=== PATIENT | male | born 1985 | race Caucasian/White ===

== ENCOUNTER 2017-11-16 17:53 | Emergency (ER) | payer SELFPAY ==
[~2017-11-16] VITALS: Ht 172.7 cm; Wt 64.9 kg
== END 2017-11-16 19:10 | disposition home or self-care (01) ==
LOC: ER 17:53
DX: S69.91XA Unspecified injury of right wrist, hand and finger(s), initial encounter (principal); W22.8XXA Striking against or struck by other objects, initial encounter; F17.210 Nicotine dependence, cigarettes, uncomplicated
CPT/HCPCS: 29125; 73130; 99283

== ENCOUNTER 2017-12-26 09:56 | Emergency (ER) | payer OTHER ==
[~2017-12-26] VITALS: Ht 170.2 cm; Wt 66.7 kg
[2017-12-26] MEDS ORDERED: Percocet 5-3251 EACH PO (11:20)
== END 2017-12-26 11:26 | disposition home or self-care (01) ==
LOC: ER 09:56
DX: S62.337A Displaced fracture of neck of fifth metacarpal bone, left hand, initial encounter for closed fracture (principal); F17.210 Nicotine dependence, cigarettes, uncomplicated; W22.8XXA Striking against or struck by other objects, initial encounter
CPT/HCPCS: 29125; 73130; 96372; 99283; J1885

== ENCOUNTER 2018-01-01 18:32 | Emergency (ER) | payer OTHER ==
[~2018-01-01] VITALS: Ht 170.2 cm; Wt 65.8 kg
[~2018-01-01 18:32] MED LIST: Percocet 5-3251 EACH PO
== END 2018-01-01 20:28 | disposition home or self-care (01) ==
LOC: ER 18:32
DX: Z47.89 Encounter for other orthopedic aftercare (principal); F17.210 Nicotine dependence, cigarettes, uncomplicated
CPT/HCPCS: 29125; 99283

== ENCOUNTER 2018-01-12 13:50 | Day surgery (SDC) | payer OTHER ==
[~2018-01-12] VITALS: Ht 167.6 cm; Wt 56.0 kg
== END 2018-01-12 17:00 | disposition home or self-care (01) ==
LOC: ORSCSDS 13:50
PROVIDERS: Orthopaedic Surgery
PROC: 0PSQ04Z Reposition Left Metacarpal with Internal Fixation Device, Open Approach (ICD-10-PCS; principal; 2018-01-12 14:45)
DX: S62.337D Displaced fracture of neck of fifth metacarpal bone, left hand, subsequent encounter for fracture with routine healing (principal); F17.210 Nicotine dependence, cigarettes, uncomplicated
CPT/HCPCS: J0690; J1885; J2250; J3010; J7120

== ENCOUNTER 2018-07-16 22:31 | Emergency (ER) | payer OTHER ==
[~2018-07-16] VITALS: Ht 170.2 cm; Wt 61.9 kg
[~2018-07-16 22:31] MED LIST changes: +CYCL10 PO; +Naprosyn500 MG PO
== END 2018-07-17 01:06 | disposition home or self-care (01) ==
LOC: ER 22:31
DX: B34.9 Viral infection, unspecified (principal); F17.210 Nicotine dependence, cigarettes, uncomplicated
CPT/HCPCS: 87081; 87430; 99283

== ENCOUNTER 2019-02-22 17:20 | Emergency (ER) | payer BC ==
[~2019-02-22] VITALS: Ht 170.2 cm; Wt 68.5 kg
== END 2019-02-22 19:52 | disposition home or self-care (01) ==
LOC: ER 17:20
DX: S61.532A Puncture wound without foreign body of left wrist, initial encounter (principal); W22.8XXA Striking against or struck by other objects, initial encounter; F17.210 Nicotine dependence, cigarettes, uncomplicated
CPT/HCPCS: 73110; 90471; 90714; 99283-25

== ENCOUNTER 2019-04-13 10:33 | Emergency (ER) | payer MEDICAID ==
[~2019-04-13] VITALS: Ht 170.2 cm; Wt 73.0 kg
[2019-04-13] MEDS ORDERED: MONDOXYNE NL100 MG PO (12:09)
[2019-04-13] MEDS ORDERED: BENZ100A PO (12:09)
== END 2019-04-13 12:41 | disposition home or self-care (01) ==
LOC: ER 10:33
DX: R05 Cough (principal); F17.210 Nicotine dependence, cigarettes, uncomplicated
CPT/HCPCS: 71046; 99283-25

== ENCOUNTER 2019-08-24 20:01 | Emergency (ER) | payer OTHER ==
[~2019-08-24] VITALS: Ht 170.2 cm; Wt 73.0 kg
[~2019-08-24 20:01] MED LIST changes: +BENZ100A PO; +IBUP600 PO; +MONDOXYNE NL100 MG PO; +Norco 10-325 T1 EACH PO; +Prednisone20 MG PO
[2019-08-24] MEDS ORDERED: CETI5 PO (21:55)
== END 2019-08-24 22:03 | disposition home or self-care (01) ==
LOC: ER 20:01
DX: L50.9 Urticaria, unspecified (principal); Z79.52 Long term (current) use of systemic steroids; F17.210 Nicotine dependence, cigarettes, uncomplicated
CPT/HCPCS: 99282; J1100; Q0163

== ENCOUNTER → 2019-11-08 | Outpatient (CLI) | payer OTHER ==
[~2019-11-08] MED LIST changes: +CETI5 PO
== END | disposition home or self-care (01) ==
LOC: LAB SHORT 18:26 → LAB EV 18:26
DX: J06.9 Acute upper respiratory infection, unspecified (principal)
CPT/HCPCS: U0003

== ENCOUNTER 2020-05-11 10:03 | Emergency (ER) | payer OTHER ==
[~2020-05-11] VITALS: Ht 170.2 cm; Wt 59.0 kg
[~2020-05-11 10:03] MED LIST changes: +Norco 5-325 Ta1 EACH PO
[2020-05-11] MEDS ORDERED: IBUP400 PO (11:08)
== END 2020-05-11 11:35 | disposition home or self-care (01) ==
LOC: ER 10:03
DX: S60.211A Contusion of right wrist, initial encounter (principal); J43.9 Emphysema, unspecified; W22.09XA Striking against other stationary object, initial encounter
CPT/HCPCS: 29125; 73110; 73130; 99283-25; L3917

== ENCOUNTER 2020-06-19 11:51 | Emergency (ER) | payer OTHER ==
[~2020-06-19] VITALS: Ht 170.2 cm; Wt 61.7 kg
[~2020-06-19 11:51] MED LIST changes: +IBUP400 PO
== END 2020-06-19 12:49 | disposition home or self-care (01) ==
LOC: ER 11:51
DX: B34.9 Viral infection, unspecified (principal); F17.200 Nicotine dependence, unspecified, uncomplicated
CPT/HCPCS: 99282

== ENCOUNTER 2020-07-29 12:08 | Emergency (ER) | payer OTHER ==
[~2020-07-29] VITALS: Ht 170.2 cm; Wt 61.7 kg
[2020-07-29] MEDS ORDERED: HYDR1TAB94 PO (13:46)
== END 2020-07-29 14:09 | disposition home or self-care (01) ==
LOC: ER 12:08
DX: S20.221A Contusion of right back wall of thorax, initial encounter (principal); F17.210 Nicotine dependence, cigarettes, uncomplicated; W01.198A Fall on same level from slipping, tripping and stumbling with subsequent striking against other object, initial encounter
CPT/HCPCS: 71101; 99283-25; A9270

== ENCOUNTER 2020-10-12 12:44 | Emergency (ER) | payer OTHER ==
[~2020-10-12] VITALS: Ht 167.6 cm; Wt 61.7 kg
[~2020-10-12 12:44] MED LIST changes: +HYDR1TAB94 PO
[2020-10-12 14:13] LABS: BASOPHILS ABSOLUTE AUTO 0.11 K/mm3 (0.00-0.23); BASOPHILS PERCENT AUTO 2 % (0-2); EOSINOPHILS ABSOLUTE AUTO 0.52 K/mm3 (0.00-0.68); EOSINOPHILS PERCENT AUTO 7 % (0-6); Hematocrit 44.3 % (37.0-53.0); Hemoglobin 15.7 g/dL (13.5-17.5); IMMATURE GRAN ABSOLUTE AUTO 0.01 K/mm3 (0.00-0.10); IMMATURE GRAN PERCENT AUTO 0 % (0-1); LYMPHOCYTES ABSOLUTE AUTO 1.86 K/mm3 (0.84-5.20); LYMPHOCYTES PERCENT AUTO 25 % (21-46); MONOCYTES ABSOLUTE AUTO 0.44 K/mm3 (0.16-1.47); MONOCYTES PERCENT AUTO 6 % (4-13); Mean Corpuscular HGB 33.3 pg (26.0-34.0); Mean Corpuscular HGB Conc 35.4 g/dL (31.5-36.5); Mean Corpuscular Volume 94 fL (80-100); Mean Platelet Volume 8.5 fL (9.1-12.4); NEUTROPHILS PERCENT AUTO 61 % (41-73); Platelet Count 278 K/mm3 (150-400); RDW Coefficient Variation 13.3 % (11.7-14.2); RDW Standard Deviation 46.1 fL (35.1-46.3); Red Blood Cell Count 4.72 M/mm3 (4.30-5.90); White Blood Cell Count 7.44 K/mm3 (4.00-11.30)
[2020-10-12 14:20] LABS: Source, Urine Clean Catch
[2020-10-12 14:35] LABS: Bilirubin, Urine Neg (Neg); Blood, Urine 1+ (Neg); Glucose Qualitative, Urine Neg (Neg); Ketones, Urine Neg (Neg); Leukocyte Esterase, Urine Neg (Neg); Nitrite, Urine Neg (Neg); Protein, Urine Neg (Neg); Urobilinogen, Urine NORM (Normal); pH, Urine 6.5 (5.0-8.0)
[2020-10-12 14:38] LABS: Anion Gap 9 mmol/L (6-16); Blood Urea Nitrogen 11 mg/dL (8-24); Bun/Creatinine Ratio 13.9 (12.0-20.0); CO2, Blood 25 mmol/L (21-32); Calcium, Blood 8.4 mg/dL (8.5-10.1); Chloride, Blood 110 mmol/L (98-108); Creatinine, Blood 0.79 mg/dL (0.60-1.20); Glomerular Filtration Rate >60 (60-); Glucose, Blood 107 mg/dL (70-99); Potassium, Blood 3.6 mmol/L (3.5-5.5); Sodium, Blood 144 mmol/L (136-145)
[2020-10-12 14:54] LABS: Appearance, Urine Clear (Clear); Color, Urine Yellow (P-Yellow)
[2020-10-12 14:55] LABS: Red Blood Cells, Urine 0-2 /hpf (0-2); White Blood Cells, Urine 0-2 /hpf (0-5)
[2020-10-12 14:56] LABS: Bacteria Few /hpf; Squamous Epithelial Cells Rare /hpf (Few)
== END 2020-10-12 15:45 | disposition home or self-care (01) ==
LOC: ER 12:44
PROVIDERS: Physician Assistant
DX: K40.90 Unilateral inguinal hernia, without obstruction or gangrene, not specified as recurrent (principal); F17.210 Nicotine dependence, cigarettes, uncomplicated
CPT/HCPCS: 36415; 74176; 80048; 81001; 85025; 99284-25

== ENCOUNTER → 2021-07-25 | Outpatient (CLI) | payer OTHER ==
[2021-07-25 12:05] LABS: BASOPHILS ABSOLUTE AUTO 0.12 K/mm3 (0.00-0.23); BASOPHILS PERCENT AUTO 2 % (0-2); EOSINOPHILS PERCENT AUTO 7 % (0-6); Hematocrit 47.3 % (37.0-53.0); Hemoglobin 16.6 g/dL (13.5-17.5); IMMATURE GRAN ABSOLUTE AUTO 0.02 K/mm3 (0.00-0.10); IMMATURE GRAN PERCENT AUTO 0 % (0-1); LYMPHOCYTES ABSOLUTE AUTO 1.69 K/mm3 (0.84-5.20); LYMPHOCYTES PERCENT AUTO 21 % (21-46); MONOCYTES PERCENT AUTO 9 % (4-13); Mean Corpuscular HGB 32.8 pg (26.0-34.0); Mean Corpuscular HGB Conc 35.1 g/dL (31.5-36.5); Mean Corpuscular Volume 94 fL (80-100); Mean Platelet Volume 8.4 fL (9.1-12.4); NEUTROPHILS ABSOLUTE AUTO 4.97 K/mm3 (1.96-9.15); NEUTROPHILS PERCENT AUTO 61 % (41-73); Platelet Count 312 K/mm3 (150-400); RDW Coefficient Variation 13.7 % (11.7-14.2); RDW Standard Deviation 46.9 fL (35.1-46.3); Red Blood Cell Count 5.06 M/mm3 (4.30-5.90)
[2021-07-25 12:18] LABS: Alanine Aminotransfer (ALT/SGP 15 U/L (12-78); Albumin, Blood 3.9 g/dL (3.4-5.0); Albumin/Globulin Ratio 1.3 (0.8-1.8); Alk Phos 79 U/L (40-126); Anion Gap 6 mmol/L (6-16); Aspartate Aminotrans (AST/SGOT 15 U/L (12-37); Bilirubin, Total 0.5 mg/dL (0.1-1.0); Blood Urea Nitrogen 11 mg/dL (8-24); Bun/Creatinine Ratio 13.8 (12.0-20.0); CO2, Blood 29 mmol/L (21-32); Calcium, Blood 8.9 mg/dL (8.5-10.1); Chloride, Blood 104 mmol/L (98-108); Globulin, Blood 3.1 g/dL (2.2-4.0); Glomerular Filtration Rate >60 (60-); Glucose, Blood 88 mg/dL (70-99); Potassium, Blood 4.4 mmol/L (3.5-5.5); Sodium, Blood 139 mmol/L (136-145)
== END | disposition home or self-care (01) ==
LOC: LAB SHORT 11:56
PROVIDERS: Family Medicine
DX: R10.9 Unspecified abdominal pain (principal)
CPT/HCPCS: 80053; 83690; 85025

== ENCOUNTER 2021-09-16 14:48 | Emergency (ER) | payer OTHER ==
[~2021-09-16] VITALS: Ht 170.2 cm; Wt 64.0 kg
[2021-09-16 16:29] LABS: Source, Urine Clean Catch
[2021-09-16 16:33] LABS: Appearance, Urine Clear (Clear); Bilirubin, Urine Neg (Neg); Blood, Urine 1+ (Neg); Color, Urine Yellow (P-Yellow); Glucose Qualitative, Urine Neg (Neg); Ketones, Urine 1+ (Neg); Leukocyte Esterase, Urine 1+ (Neg); Nitrite, Urine Neg (Neg); Protein, Urine Neg (Neg); Urobilinogen, Urine 2+ (Normal)
[2021-09-16 16:53] LABS: Red Blood Cells, Urine 0-2 /hpf (0-2); White Blood Cells, Urine 0-2 /hpf (0-5)
[2021-09-16 16:54] LABS: Bacteria Mod /hpf; Mucus Heavy (0-Heavy); Squamous Epithelial Cells Rare /hpf (Few)
[2021-09-16 18:09] LABS: BASOPHILS ABSOLUTE AUTO 0.11 K/mm3 (0.00-0.23); BASOPHILS PERCENT AUTO 1 % (0-2); EOSINOPHILS ABSOLUTE AUTO 0.36 K/mm3 (0.00-0.68); EOSINOPHILS PERCENT AUTO 3 % (0-6); Hemoglobin 16.1 g/dL (13.5-17.5); IMMATURE GRAN ABSOLUTE AUTO 0.03 K/mm3 (0.00-0.10); IMMATURE GRAN PERCENT AUTO 0 % (0-1); LYMPHOCYTES ABSOLUTE AUTO 2.02 K/mm3 (0.84-5.20); LYMPHOCYTES PERCENT AUTO 16 % (21-46); MONOCYTES ABSOLUTE AUTO 0.89 K/mm3 (0.16-1.47); MONOCYTES PERCENT AUTO 7 % (4-13); Mean Corpuscular HGB 32.7 pg (26.0-34.0); Mean Corpuscular Volume 93 fL (80-100); Mean Platelet Volume 8.4 fL (9.1-12.4); NEUTROPHILS ABSOLUTE AUTO 9.63 K/mm3 (1.96-9.15); NEUTROPHILS PERCENT AUTO 74 % (41-73); Platelet Count 300 K/mm3 (150-400); RDW Coefficient Variation 13.4 % (11.7-14.2); RDW Standard Deviation 46.5 fL (35.1-46.3); Red Blood Cell Count 4.93 M/mm3 (4.30-5.90); White Blood Cell Count 13.04 K/mm3 (4.00-11.30)
[2021-09-16 18:37] LABS: Anion Gap Unable to Calculate mmol/L (6-16); Blood Urea Nitrogen 12 mg/dL (8-24); Bun/Creatinine Ratio 15.9 (12.0-20.0); CO2, Blood 24 mmol/L (21-32); Calcium, Blood 8.2 mg/dL (8.5-10.1); Chloride, Blood 110 mmol/L (98-108); Creatinine, Blood 0.76 mg/dL (0.60-1.20); Glomerular Filtration Rate >60 (60-); Glucose, Blood 83 mg/dL (70-99); Potassium, Blood 3.5 mmol/L (3.5-5.5); Sodium, Blood 133 mmol/L (136-145)
== END 2021-09-16 20:04 | disposition home or self-care (01) ==
LOC: ER 14:48
PROVIDERS: Emergency Medicine; Physician Assistant
DX: K40.90 Unilateral inguinal hernia, without obstruction or gangrene, not specified as recurrent (principal); F17.210 Nicotine dependence, cigarettes, uncomplicated
CPT/HCPCS: 74177; 76857; 80048; 81001; 85025; 87086; 96374; 99284-25; J1885; Q9967